=== PATIENT | male | born 1930 | race Caucasian/White ===

== ENCOUNTER 2017-04-09 08:26 | Emergency (ER) | payer MEDICARE, OTHER ==
[2017-04-09] MEDS ORDERED: Albuterol/Ipratropium 3.0-0.5 MG/3 ML Neb Soln NEB ONE (09:11)
--- NOTE | 2017-04-09 09:16 | EDM.PDOC ---
ED HPI GENERAL MEDICAL PROBLEM - General Chief Complaint: Respiratory Problem Stated Complaint: COUGH Time Seen by Provider: 04/09/17 09:05 Source of Information: Reports: Patient, Family, Old Records, RN Notes Reviewed History Limitations: Reports: No Limitations - History of Present Illness INITIAL COMMENTS - FREE TEXT/NARRATIVE: 87-year-old gentleman presents emergency department day complaint of cough and shortness of breath he states been ongoing for about a week was evaluated in the clinic couple days prior tried Tessalon Perles without much relief he denies any fevers no significant sputum production declines chest pain does have a remote history of tobacco use as well as coronary artery disease - Related Data Allergies Allergy/AdvReac Type Severity Reaction Status Date / Time clarithromycin [From Biaxin] Allergy Rash Verified 04/09/17 08:55 protamine Allergy Rash Verified 04/09/17 08:55 metoprolol AdvReac Mild Hypotension Verified 04/09/17 08:55 atenolol AdvReac Hypotension Verified 04/09/17 08:55 Home Meds: Home Meds Aspirin [Children's Aspirin] 81 mg PO DAILY 08/07/14 [History] Hydrochlorothiazide 12.5 mg PO DAILY 08/07/14 [History] Losartan [Cozaar] 100 mg PO DAILY 08/07/14 [History] Omeprazole 20 mg PO DAILY 08/07/14 [History] atorvaSTATin [Lipitor] 40 mg PO BEDTIME #90 tab 08/08/14 [Rx] Finasteride [Finasteride] 1 tab PO DAILY 07/26/16 [History] Gabapentin [Gabapentin] 300 mg PO QID 07/26/16 [History] Terazosin [Hytrin] 2 mg PO DAILY 07/26/16 [History] Benzonatate [Benzonatate] 1 cap PO TID 04/09/17 [History] Past Medical History HEENT History: Reports: Cataract, Hard of Hearing, Impaired Vision Cardiovascular History: Reports: CAD, High Cholesterol, Hypertension, [place], PVD Gastrointestinal History: Reports: GERD Genitourinary History: Reports: Other (See Below) Other Genitourinary History: prostate and bladder cancer Musculoskeletal History: Reports: Arthritis Neurological History: Reports: TIA Hematologic History: Reports: Blood Transfusion(s) Oncologic (Cancer) History: Reports: Bladder, Prostate - Infectious Disease History Infectious Disease History: Reports: Chicken Pox, Measles, Mumps - Past Surgical History HEENT Surgical History: Reports: Cataract Surgery Cardiovascular Surgical History: Reports: Coronary Artery Bypass, Vascular Surgery GI Surgical History: Reports: Appendectomy Social & Family History - Tobacco Use Smoking Status *Q: Never Smoker Years of Tobacco use: 28 Used Tobacco, but Quit: Yes Month Tobacco Last Used: 1975 Second Hand Smoke Exposure: No - Caffeine Use Caffeine Use: Reports: Coffee - Alcohol Use Days Per Week of Alcohol Use: 7 Number of Drinks Per Day: 1 Total Drinks Per Week: 7 - Recreational Drug Use Recreational Drug Use: No ED ROS GENERAL - Review of Systems Review Of Systems: See Below Constitutional: Reports: No Symptoms HEENT: Reports: No Symptoms Respiratory: Reports: Shortness of Breath, Cough. Denies: Wheezing, Sputum Cardiovascular: Reports: Dyspnea on Exertion. Denies: Chest Pain GI/Abdominal: Reports: No Symptoms : Reports: No Symptoms ([employer] keeps me employed) Musculoskeletal: Reports: No Symptoms Skin: Reports: Dryness ED EXAM, GENERAL - Physical Exam Exam: See Below (Nexium register in the [place] course the last on the brought in with a cold" coating so I can't trust him for she states cold and not feeling well) Free Text/Narrative:: General: Male, not in any distress, coughing, alert and oriented x3 HEENT: head is atraumatic normocephalic, eyes pupils equal round reactive to light, sclera clear cell conjunctival hemorrhage appreciated left sclera appreciated. Ears blocked by cerumen bilaterally dry skin in both canals Nose no septal deviation , nares are clear, no blood present. Mouth mucosa is moist and pink no erythema or exudate noted in soft palate, tongue is midline uvula is midline, dentition is intact. Neck: Supple no thyromegaly no tracheal deviation. Nodes: Cervical nodes subclavicular nodes nontender no palpable lymphadenopathy noted. Lungs: Rhonchi are appreciated expiratory phase left-sided chest right side is clear CV: Regular rate and rhythm S1 and S2 appreciated no murmurs rubs or gallops noted. Abdomen: Soft, nontender, no palpable masses or organomegaly appreciated, no distention no guarding bowel sounds are present, . Neuro: Cranial nerves II through XII grossly intact Skin: Warm and dry, intact Extremities: No lower extremity edema appreciated, Course - Vital Signs Last Recorded V/S: Last Vital Signs Temp 97.0 F 04/09/17 08:54 Pulse 73 04/09/17 09:28 Resp 16 04/09/17 09:28 BP 122/62 04/09/17 09:28 Pulse Ox 98 04/09/17 09:28 - Orders/Labs/Meds Orders: Active Orders 24 hr Category Date Time Status Cardiac Monitoring [RC] .As Directed Care 04/09/17 09:09 Active EKG Documentation Completion [RC] ASDIRECTED Care 04/09/17 09:10 Active RT Aerosol Therapy [RC] ASDIRECTED Care 04/09/17 09:11 Active EKG 12 Lead [EK] Stat Ther 04/09/17 09:10 Ordered Labs: Laboratory Tests 04/09/17 04/09/17 04/09/17 Range/Units 09:29 09:29 09:29 WBC 9.0 (4.5-11.0) K/uL RBC 3.77 L (4.30-5.90) M/uL Hgb 12.3 (12.0-15.0) g/dL Hct 37.0 L (40.0-54.0) % MCV 98 (80-98) fL MCH 33 H (27-31) pg MCHC 33 (32-36) % Plt Count 206 (150-400) K/uL Neut % (Auto) 68 H (36-66) % Lymph % (Auto) 13 L (24-44) % [place] % (Auto) 16 H (2-6) % Eos % (Auto) 3 (2-4) % Baso % (Auto) 1 (0-1) % Sodium 134 L (140-148) mmol/L Potassium 3.5 L (3.6-5.2) mmol/L Chloride 98 L (100-108) mmol/L Carbon Dioxide 27 (21-32) mmol/L Anion Gap 12.5 (5.0-14.0) mmol/L BUN 17 (7-18) mg/dL Creatinine 1.3 (0.8-1.3) mg/dL Est Cr Clr Drug Dosing 38.52 mL/min Estimated GFR (MDRD) 52 L (>60) Glucose 121 H (74-106) mg/dL Lactic Acid 1.7 (0.4-2.0) mmol/L Calcium 8.3 L (8.5-10.1) mg/dL Total Bilirubin 0.9 D (0.2-1.0) mg/dL AST 20 (15-37) U/L ALT 25 (12-78) U/L Alkaline Phosphatase 81 (46-116) U/L Troponin I < 0.017 (0.000-0.056) ng/mL NT-Pro-B Natriuret Pep 346 (5-450) pg/mL Total Protein 7.3 (6.4-8.2) g/dL Albumin 3.2 L (3.4-5.0) g/dL Globulin 4.1 H (2.3-3.5) g/dL Albumin/Globulin Ratio 0.8 L (1.2-2.2) Meds: Medications Discontinued Medications Generic Name Dose Route Start Last Admin Trade Name Freq PRN Reason Stop Dose Admin Albuterol/Ipratropium 3 ml 04/09/17 09:11 04/09/17 09:27 Duoneb 3.0-0.5 Mg/3 Ml NEB 04/09/17 09:12 3 ml ONETIME ONE Administration Departure - Departure Time of Disposition: 10:05 Disposition: Home, Self-Care 01 Condition: Good Clinical Impression: Bronchitis - Discharge Information Referrals: Patrick Galarza MD [Primary Care Provider] - Forms: ED Department Discharge Additional Instructions: Take full course of antibiotics, use Robitussin with codeine as needed to help suppress the cough this medication will make you sleepy so use at night, use the albuterol inhaler as needed for shortness of breath symptoms, Please followup with your primary care provider in 3-5 days if not better, please call return to the emergency department with worsening of symptoms. - My Orders Last 24 Hours: My Active Orders 04/09/17 09:09 Cardiac Monitoring [RC] .As Directed 04/09/17 09:10 EKG Documentation Completion [RC] ASDIRECTED EKG 12 Lead [EK] Stat 04/09/17 09:11 RT Aerosol Therapy [RC] ASDIRECTED - Assessment/Plan Last 24 Hours: My Active Orders 04/09/17 09:09 Cardiac Monitoring [RC] .As Directed 04/09/17 09:10 EKG Documentation Completion [RC] ASDIRECTED EKG 12 Lead [EK] Stat 04/09/17 09:11 RT Aerosol Therapy [RC] ASDIRECTED Plan: Assessment Acuity = acute Site and laterality = bronchitis complicated patient with known history coronary artery disease, hypertension and dyslipidemia with a remote tobacco use history Etiology = suspicious for bacterial cause Manifestations = cough Location of injury = Home Lab values = chest x-ray shows no acute process, CBC within normal limits sodium low at 134 consistent hyponatremia potassium low at 3.5 consistent hypokalemia albumin low at 3.2 consistent hypoalbuminemia EKG demonstrates normal sinus rhythm there is no atrial enlargement there is no ventricular enlargement there is no axis deviation no T wave inversions I don't appreciate any ST depressions or elevations no Q waves noted good R wave progression Plan I did review lab work EKG chest x-ray results with him he had some improvement with a duo neb provided in the ED therefore he'll be discharged home with an albuterol inhaler, trial of azithromycin Z-Derek and Robitussin with codeine to help suppress the cough him follow-up with primary care in 3-5 days if no improvement Patient was in agreement with the plan all questions were answered, they were instructed to return to the emergency department or call for worsening symptoms. This note was dictated using [employer] voice recognition software please call with any questions.
--- NOTE | 2017-04-09 09:31 | CR ---
Two-view chest Comparison: August 2014. The patient has had a prior CABG procedure. Diminished lung volumes are demonstrated. There is mild b asilar atelectasis. There are no infiltrates or effusions. Impression: 1. No acute findings.
[2017-04-09 09:41] VITALS: BP 122/62
== END 2017-04-09 10:23 | disposition home or self-care (01) ==
LOC: JP.ED 08:26
DX: J40 Bronchitis, not specified as acute or chronic (principal); I10 Essential (primary) hypertension; I25.2 Old myocardial infarction; I25.10 Atherosclerotic heart disease of native coronary artery without angina pectoris; E78.00 Pure hypercholesterolemia, unspecified; K21.9 Gastro-esophageal reflux disease without esophagitis; M19.90 Unspecified osteoarthritis, unspecified site; Z98.49 Cataract extraction status, unspecified eye; Z95.1 Presence of aortocoronary bypass graft; Z87.891 Personal history of nicotine dependence; Z86.73 Personal history of transient ischemic attack (TIA), and cerebral infarction without residual deficits; Z85.46 Personal history of malignant neoplasm of prostate; Z85.51 Personal history of malignant neoplasm of bladder; Z90.49 Acquired absence of other specified parts of digestive tract; Z79.82 Long term (current) use of aspirin; Z79.899 Other long term (current) drug therapy; Z88.1 Allergy status to other antibiotic agents; Z88.8 Allergy status to other drugs, medicaments and biological substances
CPT/HCPCS: 36415; 71020; 80053; 83605; 83880; 84484; 85025; 93005; 99285; J7620; 93010; 99284

== ENCOUNTER 2017-04-14 09:29 | Observation (INO) | payer MEDICARE, OTHER ==
--- NOTE | 2017-04-14 10:36 | EDM.PDOC ---
ED HPI GENERAL MEDICAL PROBLEM - General Chief Complaint: Respiratory Problem Stated Complaint: SOB / WEAKNESS Time Seen by Provider: 04/14/17 10:34 Source of Information: Reports: Patient, Family History Limitations: Reports: No Limitations - History of Present Illness INITIAL COMMENTS - FREE TEXT/NARRATIVE: pt arrived with a history of being sob and coughing. He was told yesterday he had the early signs of pneumonia. Onset: Gradual, Other ( Pt has been ill for several days and he has lost about 20 lbs because he is not eating. ) Duration: Day(s):, Getting Worse Location: Reports: Chest Associated Symptoms: Reports: Cough, Loss of Appetite, Shortness of Breath, Other (pt has not been eating or rinking well. He has lost 15-20 lbs. he continues to cough. ) - Related Data Allergies Allergy/AdvReac Type Severity Reaction Status Date / Time clarithromycin [From Biaxin] Allergy Rash Verified 04/14/17 09:54 protamine Allergy Rash Verified 04/14/17 09:54 metoprolol AdvReac Mild Hypotension Verified 04/14/17 09:54 atenolol AdvReac Hypotension Verified 04/14/17 09:54 Home Meds: Home Meds Aspirin [Children's Aspirin] 81 mg PO DAILY 08/07/14 [History] Hydrochlorothiazide 12.5 mg PO DAILY 08/07/14 [History] Losartan [Cozaar] 100 mg PO DAILY 08/07/14 [History] Omeprazole 20 mg PO DAILY 08/07/14 [History] atorvaSTATin [Lipitor] 40 mg PO BEDTIME #90 tab 08/08/14 [Rx] Finasteride [Finasteride] 1 tab PO DAILY 07/26/16 [History] Gabapentin [Gabapentin] 300 mg PO QID 07/26/16 [History] Terazosin [Hytrin] 2 mg PO DAILY 07/26/16 [History] Benzonatate [Benzonatate] 1 cap PO TID 04/09/17 [History] Albuterol Sulfate [Ventolin Hfa] 2 puff INH Q2H PRN 04/14/17 [History] Levofloxacin 500 mg PO DAILY 04/14/17 [History] guaiFENesin/Codeine Phosphate [Guaiatussin AC] 10 ml PO Q6H 04/14/17 [History] Past Medical History HEENT History: Reports: Cataract, Hard of Hearing, Impaired Vision Cardiovascular History: Reports: CAD, High Cholesterol, Hypertension, [place], PVD Gastrointestinal History: Reports: GERD Genitourinary History: Reports: Other (See Below) Other Genitourinary History: prostate and bladder cancer Musculoskeletal History: Reports: Arthritis Neurological History: Reports: TIA Hematologic History: Reports: Blood Transfusion(s) Oncologic (Cancer) History: Reports: Bladder, Prostate - Infectious Disease History Infectious Disease History: Reports: Chicken Pox, Measles, Mumps - Past Surgical History HEENT Surgical History: Reports: Cataract Surgery Cardiovascular Surgical History: Reports: Coronary Artery Bypass, Vascular Surgery GI Surgical History: Reports: Appendectomy Social & Family History - Tobacco Use Smoking Status *Q: Never Smoker Years of Tobacco use: 28 Used Tobacco, but Quit: Yes Month Tobacco Last Used: 1975 Second Hand Smoke Exposure: No - Caffeine Use Caffeine Use: Reports: Coffee - Alcohol Use Days Per Week of Alcohol Use: 1 Number of Drinks Per Day: 1 Total Drinks Per Week: 1 - Recreational Drug Use Recreational Drug Use: No ED ROS GENERAL - Review of Systems Review Of Systems: See Below Constitutional: Reports: Weakness, Decreased Appetite, Weight Loss HEENT: Reports: No Symptoms Respiratory: Reports: Shortness of Breath, Cough, Sputum Cardiovascular: Reports: No Symptoms Endocrine: Reports: No Symptoms GI/Abdominal: Reports: Decreased Appetite, Other (pt has not been eating and drinking well) : Reports: No Symptoms Musculoskeletal: Reports: No Symptoms Skin: Reports: No Symptoms Neurological: Reports: No Symptoms ED EXAM, GENERAL - Physical Exam Exam: See Below Free Text/Narrative:: pt arrived with sob and feeling very week. He has been ill for about 10 days, He is presently on levoquin. Exam Limited By: No Limitations General Appearance: Alert, Anxious, Mild Distress Ears: Normal TMs Nose: Normal Inspection Throat/Mouth: Normal Inspection Head: Atraumatic Neck: Normal Inspection Respiratory/Chest: Decreased Breath Sounds, Wheezing, Other ( the wheezing is slight. ) Cardiovascular: Regular Rate, Rhythm GI/Abdominal: Soft, Non-Tender (Male) Exam: Deferred Rectal (Males) Exam: Deferred Back Exam: Normal Inspection Extremities: Normal Inspection, Other ( Pt does not have significant edema. ) Neurological: Alert, Oriented, Normal Cognition Psychiatric: Normal Affect Course - Vital Signs Last Recorded V/S: Last Vital Signs Temp 35.3 C 04/14/17 10:01 Pulse 85 04/14/17 10:01 Resp 18 04/14/17 10:01 BP 125/72 04/14/17 10:01 Pulse Ox 98 04/14/17 10:01 - Orders/Labs/Meds Orders: Active Orders 24 hr Category Date Time Status Chest 2V [CR] Stat Exams 04/14/17 10:32 Taken PRO B-TYPE NATRIUR PEPT,BNPPRO [CHEM] Urgent Lab 04/14/17 12:11 Ordered UA W/MICROSCOPIC [URIN] Urgent Lab 04/14/17 10:32 Uncollected Sodium Chloride 0.9% [Normal Saline] 1,000 ml Med 04/14/17 10:45 Active IV ASDIRECTED Medication Orders Sodium Chloride (Normal Saline) 1,000 mls @ 250 mls/hr IV ASDIRECTED JOHN Last Admin: 04/14/17 10:46 Dose: 250 mls/hr Labs: Laboratory Tests 04/14/17 04/14/17 04/14/17 Range/Units 10:41 10:41 10:41 WBC 7.7 (4.5-11.0) K/uL RBC 3.68 L (4.30-5.90) M/uL Hgb 12.0 (12.0-15.0) g/dL Hct 35.7 L (40.0-54.0) % MCV 97 (80-98) fL MCH 33 H (27-31) pg MCHC 34 (32-36) % Plt Count 290 (150-400) K/uL Neut % (Auto) 55 (36-66) % Lymph % (Auto) 23 L (24-44) % Lane % (Auto) 15 H (2-6) % Eos % (Auto) 6 H (2-4) % Baso % (Auto) 1 (0-1) % Sodium 132 L (140-148) mmol/L Potassium 3.3 L (3.6-5.2) mmol/L Chloride 97 L (100-108) mmol/L Carbon Dioxide 26 (21-32) mmol/L Anion Gap 12.3 (5.0-14.0) mmol/L BUN 16 (7-18) mg/dL Creatinine 1.3 (0.8-1.3) mg/dL Est Cr Clr Drug Dosing 38.39 mL/min Estimated GFR (MDRD) 52 L (>60) Glucose 102 (74-106) mg/dL Calcium 8.5 (8.5-10.1) mg/dL Total Bilirubin 0.4 D (0.2-1.0) mg/dL AST 19 (15-37) U/L ALT 32 (12-78) U/L Alkaline Phosphatase 88 (46-116) U/L C-Reactive Protein 4.42 H (0.0-0.3) mg/dL Total Protein 7.2 (6.4-8.2) g/dL Albumin 2.7 L (3.4-5.0) g/dL Globulin 4.5 H (2.3-3.5) g/dL Albumin/Globulin Ratio 0.6 L (1.2-2.2) Meds: Medications Generic Name Dose Route Start Last Admin Trade Name Freq PRN Reason Stop Dose Admin Sodium Chloride 1,000 mls @ 250 mls/hr 04/14/17 10:45 04/14/17 10:46 Normal Saline IV 250 mls/hr ASDIRECTED [facility] Administration - Re-Assessments/Exams Free Text/Narrative Re-Assessment/Exam: 04/14/17 12:32 Pt has an elevated crp. His wbc is not elevated. He has not been running a high fever. Departure - Departure Time of Disposition: 12:32 Disposition: Admitted As Inpatient 64 Condition: Fair Clinical Impression: SOB (shortness of breath), Weight loss, Bronchitis - Discharge Information Referrals: Patrick Galarza MD [Primary Care Provider] - Forms: ED Department Discharge Care Plan Goals: admit to Dr faye. - My Orders Last 24 Hours: My Active Orders 04/14/17 10:32 Chest 2V [CR] Stat UA W/MICROSCOPIC [URIN] Urgent 04/14/17 10:45 Sodium Chloride 0.9% [Normal Saline] 1,000 ml IV ASDIRECTED 04/14/17 12:11 PRO B-TYPE NATRIUR PEPT,BNPPRO [CHEM] Urgent - Assessment/Plan Last 24 Hours: My Active Orders 04/14/17 10:32 Chest 2V [CR] Stat UA W/MICROSCOPIC [URIN] Urgent 04/14/17 10:45 Sodium Chloride 0.9% [Normal Saline] 1,000 ml IV ASDIRECTED 04/14/17 12:11 PRO B-TYPE NATRIUR PEPT,BNPPRO [CHEM] Urgent
[2017-04-14] MEDS ORDERED: Sodium Chloride 0.9% 1,000 ML IV SCH (10:45)
--- NOTE | 2017-04-14 14:38 | PCM.HP ---
H&P History of Present Illness - General Date of Service: 04/14/17 Admit Problem/Dx: Admission Diagnosis/Problem Admission Diagnosis/Problem Pneumonia Source of Information: Patient, Family, Provider History Limitations: Reports: No Limitations - History of Present Illness Initial Comments - Free Text/Narative: Aaron presented to the emergency room with cough, shortness of breath and fatigue. Symptoms have been present for 3 weeks and did seem to be getting a little better but over the past week have been getting worse on a slow but progressive basis. He reports fatigue and anorexia with no appetite. He has lost 15 pounds in 3 weeks because he has not been eating well. He has no energy. He short of breath with exertion. He has a dry cough which he admits is better now than it has been has not resolved like he would've expected. No complaints of chest pain, abdominal pain or diarrhea. No lower extremity edema or orthopnea. He was started on azithromycin 5 days ago but this was discontinued yesterday and levofloxacin started in its place by his primary care provider was concerned about a left lung pneumonia. Workup in the emergency room was unremarkable other than mild dehydration. Chest x-ray showed possible subtle left lung infiltrate. He has not been hypoxic and his vital signs have all been stable. Given the duration of symptoms , weakness and dehydration he will be admitted for observation and hydration. - Related Data Allergies/Adverse Reactions: Allergies Allergy/AdvReac Type Severity Reaction Status Date / Time clarithromycin [From Biaxin] Allergy Rash Verified 04/14/17 09:54 protamine Allergy Rash Verified 04/14/17 09:54 metoprolol AdvReac Mild Hypotension Verified 04/14/17 09:54 atenolol AdvReac Hypotension Verified 04/14/17 09:54 Home Medications: Home Meds Aspirin [Children's Aspirin] 81 mg PO DAILY 08/07/14 [History] Hydrochlorothiazide 12.5 mg PO DAILY 08/07/14 [History] Losartan [Cozaar] 100 mg PO DAILY 08/07/14 [History] Omeprazole 20 mg PO DAILY 08/07/14 [History] atorvaSTATin [Lipitor] 40 mg PO BEDTIME #90 tab 08/08/14 [Rx] Finasteride [Finasteride] 1 tab PO DAILY 07/26/16 [History] Gabapentin [Gabapentin] 300 mg PO QID 07/26/16 [History] Terazosin [Hytrin] 2 mg PO DAILY 07/26/16 [History] Benzonatate [Benzonatate] 1 cap PO TID 04/09/17 [History] Albuterol Sulfate [Ventolin Hfa] 2 puff INH Q2H PRN 04/14/17 [History] Levofloxacin 500 mg PO DAILY 04/14/17 [History] guaiFENesin/Codeine Phosphate [Guaiatussin AC] 10 ml PO Q6H 04/14/17 [History] Past Medical History HEENT History: Reports: Cataract, Hard of Hearing, Impaired Vision Cardiovascular History: Reports: CAD, High Cholesterol, Hypertension, ID, PVD Gastrointestinal History: Reports: GERD Genitourinary History: Reports: Other (See Below) Other Genitourinary History: prostate and bladder cancer Musculoskeletal History: Reports: Arthritis Neurological History: Reports: TIA Hematologic History: Reports: Blood Transfusion(s) Oncologic (Cancer) History: Reports: Bladder, Prostate - Infectious Disease History Infectious Disease History: Reports: Chicken Pox, Measles, Mumps - Past Surgical History HEENT Surgical History: Reports: Cataract Surgery Cardiovascular Surgical History: Reports: Coronary Artery Bypass, Vascular Surgery GI Surgical History: Reports: Appendectomy Social & Family History - Family History Cardiac: Denies: CAD - Tobacco Use Smoking Status *Q: Never Smoker Years of Tobacco use: 28 Used Tobacco, but Quit: Yes Month Tobacco Last Used: 1975 Second Hand Smoke Exposure: No - Caffeine Use Caffeine Use: Reports: Coffee - Alcohol Use Days Per Week of Alcohol Use: 1 Number of Drinks Per Day: 1 Total Drinks Per Week: 1 - Recreational Drug Use Recreational Drug Use: No H&P Review of Systems - Review of Systems: Review Of Systems: See Below Free Text/Narrative: A complete 12 point review of systems was obtained. Pertinent positives and negatives are noted in the history of present illness. All other systems were reviewed and were negative except as noted. Exam - Exam Exam: See Below - Vital Signs Vital Signs: Last Vital Signs Temp 35.3 C 04/14/17 10:01 Pulse 81 04/14/17 13:00 Resp 18 04/14/17 10:01 BP 149/72 H 04/14/17 13:00 Pulse Ox 94 L 04/14/17 13:00 Weight: 79.379 kg - Exam Quality Assessment: No: Supplemental Oxygen General: Alert, Oriented, Cooperative. No: Mild Distress HEENT: Conjunctiva Clear. No: Mucosa Moist & [place] (dry), Scleral Icterus Neck: Supple, Trachea Midline Lungs: Normal Respiratory Effort, Rales (few left lung base) Cardiovascular: Regular Rate, Regular Rhythm, Systolic Murmur GI/Abdominal Exam: Normal Bowel Sounds, Soft, Non-Tender, No Distention Back Exam: Normal Inspection, Full Range of Motion Extremities: No Pedal Edema. No: Increased Warmth Peripheral Pulses: 2+: Dorsalis Pedis (L), Dorsalis Pedis (R) Skin: Warm, Dry, Intact Neuro Extensive - Mental Status: Alert, Oriented x3, Nl Response to Commands Neuro Extensive - Motor, Sensory, Reflexes: CN II-XII Intact. No: Dysarthria, Abnormal Motor, Tremor Psychiatric: Alert, Normal Affect - Patient Data Lab Results Last 24 hrs: Laboratory Results - last 24 hr 04/14/17 04/14/17 04/14/17 Range/Units 10:41 10:41 10:41 WBC 7.7 (4.5-11.0) K/uL RBC 3.68 L (4.30-5.90) M/uL Hgb 12.0 (12.0-15.0) g/dL Hct 35.7 L (40.0-54.0) % MCV 97 (80-98) fL MCH 33 H (27-31) pg MCHC 34 (32-36) % Plt Count 290 (150-400) K/uL Neut % (Auto) 55 (36-66) % Lymph % (Auto) 23 L (24-44) % [place] % (Auto) 15 H (2-6) % Eos % (Auto) 6 H (2-4) % Baso % (Auto) 1 (0-1) % Sodium 132 L (140-148) mmol/L Potassium 3.3 L (3.6-5.2) mmol/L Chloride 97 L (100-108) mmol/L Carbon Dioxide 26 (21-32) mmol/L Anion Gap 12.3 (5.0-14.0) mmol/L BUN 16 (7-18) mg/dL Creatinine 1.3 (0.8-1.3) mg/dL Est Cr Clr Drug Dosing 38.39 mL/min Estimated GFR (MDRD) 52 L (>60) Glucose 102 (74-106) mg/dL Calcium 8.5 (8.5-10.1) mg/dL Total Bilirubin 0.4 D (0.2-1.0) mg/dL AST 19 (15-37) U/L ALT 32 (12-78) U/L Alkaline Phosphatase 88 (46-116) U/L C-Reactive Protein 4.42 H (0.0-0.3) mg/dL NT-Pro-B Natriuret Pep (5-450) pg/mL Total Protein 7.2 (6.4-8.2) g/dL Albumin 2.7 L (3.4-5.0) g/dL Globulin 4.5 H (2.3-3.5) g/dL Albumin/Globulin Ratio 0.6 L (1.2-2.2) Urine Color Urine Appearance Urine pH (4.5-8.0) Ur Specific [place] (1.008-1.030) Urine Protein (NEGATIVE) mg/dL Urine Glucose (UA) (NEGATIVE) mg/dL Urine Ketones (NEGATIVE) mg/dL Urine Occult Blood (NEGATIVE) Urine Nitrite (NEGAITVE) Urine Bilirubin (NEGATIVE) Urine Urobilinogen (NORMAL) mg/dL Ur Leukocyte Esterase (NEGATIVE) Urine RBC (0-5) Urine WBC (0-5) Ur Epithelial Cells Amorphous Sediment Urine Bacteria Urine Mucus Urine Other 04/14/17 04/14/17 Range/Units 12:11 12:22 WBC (4.5-11.0) K/uL RBC (4.30-5.90) M/uL Hgb (12.0-15.0) g/dL Hct (40.0-54.0) % MCV (80-98) fL MCH (27-31) pg MCHC (32-36) % Plt Count (150-400) K/uL Neut % (Auto) (36-66) % Lymph % (Auto) (24-44) % [place] % (Auto) (2-6) % Eos % (Auto) (2-4) % Baso % (Auto) (0-1) % Sodium (140-148) mmol/L Potassium (3.6-5.2) mmol/L Chloride (100-108) mmol/L Carbon Dioxide (21-32) mmol/L Anion Gap (5.0-14.0) mmol/L BUN (7-18) mg/dL Creatinine (0.8-1.3) mg/dL Est Cr Clr Drug Dosing mL/min Estimated GFR (MDRD) (>60) Glucose (74-106) mg/dL Calcium (8.5-10.1) mg/dL Total Bilirubin (0.2-1.0) mg/dL AST (15-37) U/L ALT (12-78) U/L Alkaline Phosphatase (46-116) U/L C-Reactive Protein (0.0-0.3) mg/dL NT-Pro-B Natriuret Pep 253 (5-450) pg/mL Total Protein (6.4-8.2) g/dL Albumin (3.4-5.0) g/dL Globulin (2.3-3.5) g/dL Albumin/Globulin Ratio (1.2-2.2) Urine Color Yellow Urine Appearance Clear Urine pH 7.0 (4.5-8.0) Ur Specific [place] 1.005 L (1.008-1.030) Urine Protein Negative (NEGATIVE) mg/dL Urine Glucose (UA) Normal (NEGATIVE) mg/dL Urine Ketones Negative (NEGATIVE) mg/dL Urine Occult Blood Negative (NEGATIVE) Urine Nitrite Negative (NEGAITVE) Urine Bilirubin Negative (NEGATIVE) Urine Urobilinogen Normal (NORMAL) mg/dL Ur Leukocyte Esterase Negative (NEGATIVE) Urine RBC Not seen (0-5) Urine WBC 0-5 (0-5) Ur Epithelial Cells Not seen Amorphous Sediment Rare Urine Bacteria Not seen Urine Mucus Not seen Urine Other See note Result Diagrams: 04/14/17 10:41 04/14/17 10:41 Imaging Impressions Last 24 hrs: CXR - images personally reviewed - there is a subtle left lower lung infiltrate. No effusion, no mass or cardiomegally *Q Meaningful Use (ADM) - VTE *Q VTE Criteria *Q: - VTE Risk Assess *Q Each Risk Factor Represents 1 Point: None, Serious lung disease including pneumonia Total Score 1 Point Risk Factors: 1 Each Risk Factor Represents 2 Points: None Total Score 2 Point Risk Factors: 0 Each Risk Factor Represents 3 Points: Age 75 Years or Greater Total Score 3 Point Risk Factors: 3 Each Risk Factor Represents 5 Points: None Total Score 5 Point Risk Factors: 0 Venous Thromboembolism Risk Factor Score *Q: 4 - Stroke *Q Stroke Criteria *Q: - AMI *Q AMI Criteria *Q: - Problem List (1) Left lower lobe pneumonia SNOMED Code(s): 896918056 ICD Code: J18.1 - LOBAR PNEUMONIA, UNSPECIFIED ORGANISM Status: Acute Current Visit: Yes Qualifiers: Pneumonia type: due to unspecified organism Qualified Code(s): J18.1 - Lobar pneumonia, unspecified organism (2) Weakness SNOMED Code(s): 44554258 ICD Code: R53.1 - WEAKNESS Status: Acute Current Visit: Yes (3) Dehydration SNOMED Code(s): 55775549 ICD Code: E86.0 - DEHYDRATION Status: Acute Current Visit: Yes Problem List Initiated/Reviewed/Updated: Yes Orders Last 24hrs: Active Orders 24 hr Category Date Time Status Patient Status Manage Transfer [TRANSFER] Routine ADT 04/14/17 14:27 Ordered Chest 2V [CR] Stat Exams 04/14/17 10:32 Taken Dextrose 5%-0.9% NaCl with KCl [D5 NS with 20 mEq KCl] Med 04/14/17 14:30 Active 1,000 ml IV ASDIRECTED Sodium Chloride 0.9% [Normal Saline] 1,000 ml Med 04/14/17 10:45 Active IV ASDIRECTED Resuscitation Status Routine Resus Stat 04/14/17 14:28 Ordered Medication Orders Sodium Chloride (Normal Saline) 1,000 mls @ 250 mls/hr IV ASDIRECTED [facility] Last Admin: 04/14/17 10:46 Dose: 250 mls/hr Potassium Chloride/Dextrose/Sod Cl (D5 Ns With 20 Meq Kcl) 1,000 mls @ 100 mls/ hr IV ASDIRECTED [facility] Assessment/Plan Comment:: ASSESSMENT AND PLAN - Left lower lobe pneumonia with weakness and dehydration - is not currently hypoxic. He has had prolonged duration of symptoms and I suspect may be he had initially a viral infection complicated by more recently a bacterial infection. Chest x-ray findings are subtle but he has definite crackles on the left side on examination. With the weakness and dehydration I think he would benefit from overnight admission. -IV fluids overnight -Continue levofloxacin -Symptomatic management for cough Maintenance issues - - DVT prophylaxis - mechanical - GI prophylaxis - PPI - Nutrition - regular diet - Smith catheter - not indicated CODE STATUS - DNR/DNI Admission justification - Aaron will be referred to observation status overnight for hydration and strengthening in the setting of pneumonia with weakness and dehydration. Disposition - anticipate discharge to home tomorrow with his Joi Primary care physician - Dr. Ml Up M.D.
[2017-04-14] MEDS ORDERED: Benzonatate 100 MG Cap PO PRN (14:49)
[2017-04-14] MEDS ORDERED: Ibuprofen 600 MG Tab PO PRN (14:49)
[2017-04-14] MEDS ORDERED: Codeine/guaiFENesin 100mg-10 MG/5 ML Syrup 10 ML Cup PO PRN (14:49)
[2017-04-14] MEDS ORDERED: Ondansetron 4 MG Tab.DIS PO PRN (14:49)
[2017-04-14] MEDS ORDERED: Acetaminophen 325 MG Tab PO PRN (14:49)
[2017-04-14] MEDS ORDERED: Potassium Chloride 20 MEQ Tab.ER PO ONE (16:00)
[2017-04-14] MEDS: Dextrose 5%-0.9% NaCl with KCl 1,000 ML IV SCH (17:12)
[2017-04-14] MEDS: Albuterol 0.083% 2.5 MG/3 ML Neb Soln NEB PRN (19:34)
[2017-04-15] MEDS: Dextrose 5%-0.9% NaCl with KCl 1,000 ML IV SCH (03:06)
[2017-04-15] MEDS ORDERED: LEVOFLOXACIN 500 MG PO SCH (07:30)
[2017-04-15] MEDS ORDERED: OMEPRAZOLE 20MG (PTOM) PO SCH (07:30)
[2017-04-15] MEDS: Albuterol 0.083% 2.5 MG/3 ML Neb Soln NEB PRN (08:06)
[2017-04-15] MEDS ORDERED: LOSARTAN 100 MG PO SCH ×2 (09:00→21:00)
[2017-04-15] MEDS ORDERED: FINASTERIDE 5 MG PO SCH ×2 (09:00)
[2017-04-15] MEDS ORDERED: HYDROCHLOROTHIAZIDE 12.5 MG PO SCH ×2 (09:00)
[2017-04-15] MEDS ORDERED: ASPIRIN 81 MG PO SCH (09:00)
[2017-04-15] MEDS ORDERED: Aspirin 81 MG Tab.Chew PO SCH (09:00)
[2017-04-15] MEDS ORDERED: Gabapentin 300 MG (PTOM) PO SCH (10:00)
[2017-04-15 11:06] VITALS: BP 118/46
--- NOTE | 2017-04-15 13:56 | PCM.DCSUM1 ---
Discharge Summary - Hospital Course Brief History: 87-year-old male with recent difficulties with respiratory infection who presented with weakness, dehydration and cough. He is admitted for observation and hydration with mild left lower lobe pneumonia. - Discharge Data Discharge Date: 04/15/17 Discharge Disposition: Home, Self-Care 01 Condition: Good - Discharge Diagnosis/Problem(s) (1) Left lower lobe pneumonia SNOMED Code(s): 645329278 ICD Code: J18.1 - LOBAR PNEUMONIA, UNSPECIFIED ORGANISM Status: Acute Current Visit: Yes Qualifiers: Pneumonia type: due to unspecified organism Qualified Code(s): J18.1 - Lobar pneumonia, unspecified organism (2) Weakness SNOMED Code(s): 19645073 ICD Code: R53.1 - WEAKNESS Status: Acute Current Visit: Yes (3) Dehydration SNOMED Code(s): 96978675 ICD Code: E86.0 - DEHYDRATION Status: Acute Current Visit: Yes - Patient Summary/Data Hospital Course: Aaron was admitted yesterday for hydration and management of a mild left lower lung pneumonia. He did not have any acute events overnight. Respiratory status has been stable and oxygen saturations have been excellent without supplemental oxygen. He has not had any fevers. He slept well. Appetite has improved. He has been up and walking around and continues to have excellent saturation even with activity. He does have a mild cough and some residual weakness. He is able to get in and out of bed on his own and can ambulate significant distances without any assistance. I do believe he is safe for outpatient management at this time. I provided extensive counseling that he will get better from this but will take time. He should not expect to be dramatically better from day to day but over the course of several days should be feeling better and better. He needs to maintain activity to avoid getting any weaker. He should complete his recently started course of levofloxacin. He will follow-up this week if symptoms are not continuing to improve. - Patient Instructions Diet: Regular Diet as Tolerated Activity: As Tolerated Driving: May Drive Today Showering/Bathing: May Shower Notify Provider of: Fever, Increased Pain, Nausea and/or Vomiting Other/Special Instructions: 1. You were in the hospital for management of left lower lobe pneumonia. This is a mild pneumonia and you have not required any supplemental oxygen. I recommend that you complete the course of antibiotics that was recently started. You may use the Robitussin as needed for cough. You should listen to your body and take a rest when needed but I recommend increasing your activity and exercise as tolerated. It may take up to a couple weeks for the cough to go away completely. It will likely take weeks to improve your strength back to baseline because of the duration of this infection. 2. Please continue your home medications as previously prescribed. 3. Eucerin or Wayne Huskers lotion are good choices to use for the dry skin in and around your ears. 4. Please seek medical attention if you develop fever greater than 101, you have sudden worsening of your shortness of breath or you develop chest pain/ pressure. - Discharge Plan Home Medications: Home Meds Aspirin [Children's Aspirin] 81 mg PO DAILY 08/07/14 [History] Hydrochlorothiazide 12.5 mg PO DAILY 08/07/14 [History] Losartan [Cozaar] 100 mg PO DAILY 08/07/14 [History] Omeprazole 20 mg PO DAILY 08/07/14 [History] atorvaSTATin [Lipitor] 40 mg PO BEDTIME #90 tab 08/08/14 [Rx] Finasteride 1 tab PO DAILY 07/26/16 [History] Terazosin [Hytrin] 2 mg PO DAILY 07/26/16 [History] Benzonatate 1 cap PO TID 04/09/17 [History] Albuterol Sulfate [Ventolin Hfa] 2 puff INH Q2H PRN 04/14/17 [History] Levofloxacin 500 mg PO DAILY 04/14/17 [History] guaiFENesin/Codeine Phosphate [Guaiatussin AC] 10 ml PO Q6H 04/14/17 [History] Patient Handouts: Levofloxacin tablets, Community-Acquired Pneumonia, Adult Referrals: Patrick Galarza MD [Primary Care Provider] - (f/u as needed if symptoms do not continue to get better or they get worse) - Discharge Summary/Plan Comment DC Time >30 min.: No (25) - Patient Data Vitals - Most Recent: Last Vital Signs Temp 35.4 C 04/15/17 11:04 Pulse 74 04/15/17 11:04 Resp 16 04/15/17 11:04 BP 118/46 L 04/15/17 11:04 Pulse Ox 98 04/15/17 11:04 Weight - Most Recent: 79.379 kg I&O - Last 24 hours: Intake & Output 04/14/17 04/15/17 04/15/17 22:59 06:59 14:59 Intake Total 694 1661 1004 Output Total 0074 359 4584 Balance -306 1261 -171 Med Orders - Current: Current Medications Acetaminophen (Tylenol) 650 mg PO Q4H PRN PRN Reason: Pain (Mild 1-3)/fever Albuterol (Proventil Neb Soln) 2.5 mg NEB Q4H PRN PRN Reason: Shortness Of Breath/wheezing Last Admin: 04/15/17 08:06 Dose: 2.5 mg Aspirin (Halfprin) 81 mg PO DAILY [facility] Last Admin: 04/15/17 08:46 Dose: 81 mg Benzonatate (Tessalon Perles) 100 mg PO TID PRN PRN Reason: Cough Finasteride (Proscar) 5 mg PO DAILY [facility] Last Admin: 04/15/17 08:47 Dose: 5 mg Guaifenesin/Codeine Phosphate (Robitussin Ac) 10 ml PO Q4H PRN PRN Reason: Cough Last Admin: 04/14/17 19:34 Dose: 10 ml Hydrochlorothiazide (Hydrochlorothiazide) 12.5 mg PO DAILY [facility] Last Admin: 04/15/17 08:46 Dose: 12.5 mg Ibuprofen (Motrin) 600 mg PO Q6H PRN PRN Reason: Pain/Fever Last Admin: 04/14/17 19:34 Dose: 600 mg Levofloxacin (Levaquin) 500 mg PO DAILY@0730 [facility] Last Admin: 04/15/17 06:30 Dose: 500 mg Ondansetron HCl (Zofran Odt) 4 mg PO Q6H PRN PRN Reason: Nausea able to take PO Omeprazole 20mg ( (Ptom)) 0 each PO DAILY@0730 [facility] Last Admin: 04/15/17 06:30 Dose: 1 each Atorvastatin 40mg ( (Ptom)) 0 each PO BEDTIME JOHN Terazosin 2mg (Ptom) 0 each PO BEDTIME JOHN Losartan 100mg (Ptom ()) 0 each PO BEDTIME [facility] Senna/Docusate Sodium (Senna Plus) 1 tab PO BID PRN PRN Reason: Constipation Discontinued Medications Aspirin (Aspirin) 81 mg PO DAILY [facility] Gabapentin (Neurontin) 300 mg PO QID [facility] Sodium Chloride (Normal Saline) 1,000 mls @ 250 mls/hr IV ASDIRECTED [facility] Last Admin: 04/14/17 10:46 Dose: 250 mls/hr Potassium Chloride/Dextrose/Sod Cl (D5 Ns With 20 Meq Kcl) 1,000 mls @ 100 mls/ hr IV ASDIRECTED [facility] Last Admin: 04/15/17 03:06 Dose: 100 mls/hr (Atorvastatin [ Lipitor] 40 Mg)*Pt Own Med* 40 mg PO BEDTIME [facility] Last Admin: 04/14/17 21:08 Dose: 40 mg (Finasteride [ Finasteride] 5 Mg Tab)*Pt Own Med* 0 tab PO DAILY [facility] Last Admin: 04/14/17 21:10 Dose: 1 tab (Gabapentin [ Gabapentin] 300 Mg)* Pt Own Med* 300 mg PO QID [facility] Last Admin: 04/15/17 05:13 Dose: Not Given (Hydrochlorothiazide [ Hydrochlorothiazide] 12.5 Mg)* Pt Own Med* 12.5 mg PO DAILY [facility] Last Admin: 04/14/17 21:11 Dose: 12.5 mg (Losartan [Cozaar] (100 Mg)*Pt Own Med*) 100 mg PO DAILY [facility] Last Admin: 04/14/17 21:10 Dose: 100 mg (Terazosin [Hytrin] (2 Mg)*Pt Own Med*) 2 mg PO DAILY [facility] Last Admin: 04/14/17 21:09 Dose: 2 mg Losartan 100mg (Ptom ()) 0 each PO DAILY [facility] Last Admin: 04/15/17 08:48 Dose: Not Given Potassium Chloride (Klor-Con M20) 40 meq PO ONETIME ONE Stop: 04/14/17 16:01 Last Admin: 04/14/17 17:14 Dose: 40 meq - Exam Quality Assessment: Denies: Supplemental Oxygen General: Reports: Alert, Oriented, Cooperative, No Acute Distress Lungs: Reports: Normal Respiratory Effort, Rales (Rare left lung base) Cardiovascular: Reports: Regular Rate, Regular Rhythm GI/Abdominal Exam: Soft, No Distention Extremities: No Pedal Edema Psy/Mental Status: Reports: Alert, Normal Affect *Q Meaningful Use (DIS) - VTE *Q VTE Criteria *Q: - Stroke *Q Stroke Criteria *Q: - AMI *Q AMI Criteria *Q:
[2017-04-15] MEDS ORDERED: ATORVASTATIN 40MG (PTOM) PO SCH (21:00)
[2017-04-15] MEDS ORDERED: TERAZOSIN 2 MG PO SCH (21:00)
--- NOTE | 2017-04-16 09:30 | CR ---
Chest 2V INDICATION: sob FINDINGS: Comparison 04/09/2017. Sternotomy. Mild elevation right hemidiaphragm. Chest otherwise negat radhika.
== END 2017-04-15 15:11 | disposition home or self-care (01) ==
LOC: JP.ED 09:29 → JP.MS 14:27
PROVIDERS: ADMIT Internal Medicine; ATTEND Internal Medicine
DX: J18.1 Lobar pneumonia, unspecified organism (principal); R53.1 Weakness; E86.0 Dehydration; I10 Essential (primary) hypertension; E78.00 Pure hypercholesterolemia, unspecified; K21.9 Gastro-esophageal reflux disease without esophagitis; Z79.82 Long term (current) use of aspirin; Z79.899 Other long term (current) drug therapy; Z88.1 Allergy status to other antibiotic agents; Z88.8 Allergy status to other drugs, medicaments and biological substances; I25.10 Atherosclerotic heart disease of native coronary artery without angina pectoris; Z90.49 Acquired absence of other specified parts of digestive tract; Z95.1 Presence of aortocoronary bypass graft; Z98.890 Other specified postprocedural states; R06.02 Shortness of breath
CPT/HCPCS: 36415; 71020; 80053; 81001; 83880; 85025; 86140; 94640; 96360; 96361; 99217; 99219; 99284; 99285; A9270; G0378; J3480; J7040